=== PATIENT | male | born 1980 | race Caucasian/White ===

== ENCOUNTER 2022-03-30 01:11 | Emergency (ER) | payer MEDICAID ==
[~2022-03-30] VITALS: Ht 162.6 cm; Wt 70.5 kg
[2022-03-30 03:00] VITALS: BP 129/73
[2022-03-30] MEDS ORDERED: PredniSONE 20 MG TABLET PO ONE (03:00)
[2022-03-30] MEDS ORDERED: LORATADINE 10 MG TABLET PO ONE (03:00)
[2022-03-30] MEDS ORDERED: PRED-554 PO (03:02)
== END 2022-03-30 03:24 | disposition home or self-care (01) ==
LOC: EMS 01:14
DX: L50.9 Urticaria, unspecified (principal)
CPT/HCPCS: 99283; J7512